=== PATIENT | female | born 1930 | race Caucasian/White ===

== ENCOUNTER 2016-12-18 23:05 | Emergency (ER) | payer MEDICARE, BC ==
--- NOTE | ~2016-12-18 | CT71 ---
[facility] A Service [facility] RADIOLOGY TEXT RESULTS PATIENT: ANDRIA GALAVIZ LOCATION: [facility] : 28 UNIT #: [id number] AGE: [address]: Enrrique Esteves MD SEX: F ORDER DR: [id number] [facility] [address] [place], [place] [address] [id number] E MR#: [id number] Acc #: [id number] NAME: ANDRIA GALAVIZ : 1930 SEX: F STUDY DATE/TIME: 12/19/2016 1:22 UNIT: [facility] ROOM: STUDY DESCRIPTION: CT Head Wo Contrast Attending Physician: Enrrique Esteves Ordering Physician: Torito Esteves M.D. Primary Care Physician: Primary Care Physician No MEDICAL IMAGING REPORT This report is preliminary unless electronic signature is present EXAM CT scan of the head without contrast INDICATION Fall with head trauma and confusion. The patient fell today. COMPARISON 11/28/[address] exam was performed with one or more of the following radiation dose reduction techniques: automatic exposure control, adjustment of mA and/or kV according to patient size, and iterative reconstruction. FINDINGS Unenhanced images were obtained through the brain. There is generalized atrophy. There are no masses or extraaxial fluid collections or hemorrhage. No fracture is visible. IMPRESSION Stable generalized atrophy. No acute finding. Dictated by... Shamar Esteban M.D. THIS IS AN ELECTRONICALLY VERIFIED REPORT Shamar Esteban M.D. at 12/19/2016 5:56 AM SABI/hung TD: 12/19/2016 04:42 [facility] A Service [facility] RADIOLOGY TEXT RESULTS PATIENT: ANDRIA GALAVIZ LOCATION: [facility] : 28 UNIT #: [id number] AGE: [address]: Enrrique Esteves MD SEX: F ORDER DR: [id number] #: [id number] MEDICAL IMAGING REPORT Page 1 of 1 COPY
[~2016-12-18 23:05] MED LIST: CARAFATE PO; CENTRUM SILVER1 EAC2 PO; COLACE PO; DOCUSATE SODIU100 MG PO; GINKGO BILOBA40 M1 PO; HYDROCODON-ACE1 EAC7 PO; LASIX20 MG PO; LEVAQUIN PO; LIDALL 4%-1% P1 EACH TOP; MIRTAZAPINE7.5 MG PO; MULTI VITAMIN1 EACH PO; PROTONIX PO
== END 2016-12-19 04:01 | disposition home or self-care (01) ==
LOC: CED 23:05
DX: S00.03XA Contusion of scalp, initial encounter (principal); W19.XXXA Unspecified fall, initial encounter; Y93.89 Activity, other specified; Y92.129 Unspecified place in nursing home as the place of occurrence of the external cause; F03.90 Unspecified dementia, unspecified severity, without behavioral disturbance, psychotic disturbance, mood disturbance, and anxiety; Z79.899 Other long term (current) drug therapy; Z79.2 Long term (current) use of antibiotics
CPT/HCPCS: 70450; 99283

== ENCOUNTER → 2017-03-14 | Outpatient (CLI) | payer MEDICARE, BC | END | disposition home or self-care (01) | LOC: CECH 03-10 13:45 | DX: I48.91 Unspecified atrial fibrillation (principal); R60.0 Localized edema; I51.7 Cardiomegaly; I35.0 Nonrheumatic aortic (valve) stenosis; I35.8 Other nonrheumatic aortic valve disorders; I36.1 Nonrheumatic tricuspid (valve) insufficiency | CPT/HCPCS: 93306 ==